=== PATIENT | male | born 1950 | race Caucasian/White ===

== ENCOUNTER 2017-03-21 21:40 | Inpatient (IN) | payer MEDICARE ==
[~2017-03-21] VITALS: Ht 180.3 cm; Wt 85.1 kg
[~2017-03-21 21:40] MED LIST: AUGMENTIN 875-11 TAB PO; BACLOFEN10 MG PO; CALMOSEPTINE OI71 GM TOPICAL; CLONAZEPAM2 MG/TAB PO; FOLIC ACID1 MG PO; HYDROCODONE-APA1 TAB PO; IPRAT-ALBUT 0.5-3 ML UPD; K-DUR20 MEQ PO; K-PHOS250 MG PO; LASIX20 MG PO; LEVAQUIN PREMI750 MG PO; MAG-OX 400 MG400 MG PO; NEUTRA-PHOS PAC1 PK1 PO; NICODERM C1 PATCH .3 TRANSDERM; ONCOLOGY MOUTHWA5 ML PO; SEROQUEL100 MG PO; VERELAN PM100 MG PO; ZESTRIL40 MG PO; ZYLOPRIM100 MG PO
[2017-03-21 23:22] LABS: BASOPHILS 0.2 % (0-2); EOSINOPHILS 0 % (0-7); HEMATOCRIT 39.7 % (42.0-54.0); HEMOGLOBIN 14.1 g/dL (13.5-17.5); IMMATURE GRANULOCYTES 0.2 % (0-5); MCH 32.3 pg (26.0-34.0); MCHC 35.5 g/dL (31.0-37.0); MCV 90.8 fL (80.0-100.0); MEAN PLATELET VOLUME 9.4 fL (7.4-10.4); NEUTROPHILS 86.6 % (40-80); RBC 4.37 10x6/uL (4.20-6.10); RDW 11.7 % (11.5-14.5); WBC 4.2 10x3/uL (4.8-10.8)
[2017-03-21 23:24] LABS: PLATELET COUNT 184 10x3/uL (130-400)
[2017-03-21 23:44] LABS: ALBUMIN 3.5 g/dL (3.4-5.0); BILIRUBIN - TOTAL 0.69 mg/dL (0.2-1.3); CALCIUM 8.7 mg/dL (8.5-10.1); CARBON DIOXIDE 26.4 mmol/L (21.0-32.0); CREATININE - SERUM 1.1 mg/dL (0.6-1.3); MAGNESIUM - SERUM 1.6 mg/dL (1.8-2.4); POTASSIUM - SERUM 4.4 mmol/L (3.5-5.1); PROTEIN - SERUM 7.2 g/dL (6.4-8.2)
[2017-03-22 01:24] LABS: CKMB 4.7 U/L (0.0-3.6); CREATINE KINASE 566 UL (21-232); TROPONIN-I < 0.017 ng/mL (0.000-0.060)
[2017-03-22 06:39] LABS: CKMB 6.4 U/L (0.0-3.6); CREATINE KINASE 553 UL (21-232)
[2017-03-22 06:42] LABS: TROPONIN-I < 0.017 ng/mL (0.000-0.060)
[2017-03-22 11:40] LABS: CKMB 6.1 U/L (0.0-3.6); CREATINE KINASE 468 UL (21-232)
[2017-03-22 11:44] LABS: TROPONIN-I < 0.017 ng/mL (0.000-0.060)
[2017-03-22 16:44] LABS: ANION GAP 14.2 mmol/L (8-16); CALCIUM 8.7 mg/dL (8.5-10.1); CARBON DIOXIDE 24.2 mmol/L (21.0-32.0); CREATININE - SERUM 1.2 mg/dL (0.6-1.3); POTASSIUM - SERUM 4.4 mmol/L (3.5-5.1)
[2017-03-22] MEDS ORDERED: ZOVIRAX800 MG PO (20:04)
[2017-03-22] MEDS ORDERED: HYDROCODON-ACE1 EAC7 PO (20:06)
[2017-03-22] MEDS ORDERED: PROAIR HFA8.5 GM INH (20:08)
[2017-03-23] VITALS (7 sets, daily range): BP systolic 120–168; BP diastolic 61–80; Ht 180.3 cm; Wt 85.1 kg
[2017-03-23 06:29] LABS: BASOPHILS 0 % (0-2); EOSINOPHILS 0 % (0-7); HEMATOCRIT 40.1 % (42.0-54.0); HEMOGLOBIN 13.6 g/dL (13.5-17.5); IMMATURE GRANULOCYTES 0.2 % (0-5); MCH 31.4 pg (26.0-34.0); MCHC 33.9 g/dL (31.0-37.0); MCV 92.6 fL (80.0-100.0); MEAN PLATELET VOLUME 9.1 fL (7.4-10.4); MONOCYTES 10.2 % (2-11); NEUTROPHILS 83.6 % (40-80); PLATELET COUNT 196 10x3/uL (130-400); RBC 4.33 10x6/uL (4.20-6.10); RDW 11.9 % (11.5-14.5); WBC 6.4 10x3/uL (4.8-10.8)
[2017-03-23 06:38] LABS: ANION GAP 11.1 mmol/L (8-16); CALCIUM 8.1 mg/dL (8.5-10.1); CARBON DIOXIDE 26.7 mmol/L (21.0-32.0); CREATININE - SERUM 1.1 mg/dL (0.6-1.3); POTASSIUM - SERUM 3.8 mmol/L (3.5-5.1)
[2017-03-24] VITALS (7 sets, daily range): BP systolic 15–166; BP diastolic 59–82
[2017-03-24 07:11] LABS: BASOPHILS 0.1 % (0-2); EOSINOPHILS 0 % (0-7); HEMATOCRIT 38.5 % (42.0-54.0); HEMOGLOBIN 12.9 g/dL (13.5-17.5); IMMATURE GRANULOCYTES 0.4 % (0-5); MCH 31.3 pg (26.0-34.0); MCHC 33.5 g/dL (31.0-37.0); MCV 93.4 fL (80.0-100.0); MEAN PLATELET VOLUME 9.3 fL (7.4-10.4); MONOCYTES 5.1 % (2-11); NEUTROPHILS 88.4 % (40-80); PLATELET COUNT 221 10x3/uL (130-400); RBC 4.12 10x6/uL (4.20-6.10); RDW 12.2 % (11.5-14.5)
[2017-03-24 07:13] LABS: WBC 8.4 10x3/uL (4.8-10.8)
[2017-03-24 07:38] LABS: ALBUMIN 2.9 g/dL (3.4-5.0); ALKALINE PHOSPHATASE 39 U/L (46-116); ALT (SGPT) 24 U/L (10-68); BILIRUBIN - TOTAL 0.27 mg/dL (0.2-1.3); CALC OSMOLALITY 266 mosm/kg (275-300); CARBON DIOXIDE 26.7 mmol/L (21.0-32.0); CHLORIDE - SERUM 98 mmol/L (98-107); GLUCOSE 144 mg/dL (74-106); PROTEIN - SERUM 6.3 g/dL (6.4-8.2); SODIUM 131 mmol/L (136-145); UREA NITROGEN 16 mg/dL (7-18); eGFR NON AFRICAN AMERICAN 79 mL/min (90-120)
[2017-03-24] MEDS ORDERED: PREDNISONE10 MG PO (15:32)
[2017-03-24] MEDS ORDERED: LEVAQUIN750 MG PO (15:34)
[2017-03-25 04:24] VITALS: BP 122/67
[2017-03-25 08:09] VITALS: BP 143/81
[2017-03-25 11:38] VITALS: BP 162/88
== END 2017-03-25 17:20 | disposition home or self-care (01) | DRG 191 ==
LOC: D.ER 21:40 → OBSVTIME 03-22 00:55 → D.SDCHOLD 03-22 00:55 → D.M2 03-22 14:46
PROVIDERS: Emergency Medicine; ADMIT Family Medicine
DX: J44.1 Chronic obstructive pulmonary disease with (acute) exacerbation (principal); E87.1 Hypo-osmolality and hyponatremia; F10.20 Alcohol dependence, uncomplicated; E86.0 Dehydration; B02.9 Zoster without complications; Z86.73 Personal history of transient ischemic attack (TIA), and cerebral infarction without residual deficits; I10 Essential (primary) hypertension; F31.9 Bipolar disorder, unspecified; Z91.81 History of falling; Z72.0 Tobacco use